=== PATIENT | male | born 1995 | race Native Hawaiian/Other Pacific Islander ===

== ENCOUNTER 2022-11-06 08:47 | Outpatient (CLI) | payer BC | END 2022-11-06 19:11 | disposition home or self-care (01) | LOC: US 08:47 | PROVIDERS: ATTEND Internal Medicine | DX: K59.1 Functional diarrhea (principal); R11.2 Nausea with vomiting, unspecified; R10.11 Right upper quadrant pain | CPT/HCPCS: A9537 ==